=== PATIENT | female | born 1945 | race Caucasian/White ===

== ENCOUNTER 2024-04-09 14:38 | Emergency (ER) | payer MEDICARE, OTHER ==
[2024-04-09] MEDS: Diphtheria,Pertussis(Acell),Tetanus Vaccine 0.5 ML Syringe IM ONE (15:11)
== END 2024-04-09 15:15 | disposition home or self-care (01) ==
LOC: JD.ED 14:38
DX: S61.451A Open bite of right hand, initial encounter (principal); L03.113 Cellulitis of right upper limb; Z88.8 Allergy status to other drugs, medicaments and biological substances; Z23 Encounter for immunization; W55.01XA Bitten by cat, initial encounter
CPT/HCPCS: 90471; 90715; 99283; 99283-25